=== PATIENT | male | born 1950 | race Caucasian/White ===

== ENCOUNTER 2019-11-28 14:33 | Outpatient (CLI) | payer MEDICARE, SELFPAY ==
--- NOTE | 2019-11-28 14:37 | ECG_ITS ---
Measurements Intervals [place] Rate: 65 P: 53 CT: 236 QRS: 4 QRSD: 103 T: 28 QT: 380 QTc: 396 Interpretive Statements SINUS RHYTHM WITH FIRST DEGREE AV BLOCK DELAYED PRECORDIAL R/S TRANSITION BASELINE ARTIFACT- I, III, AVR, AVL ABNORMAL ECG Electronically Signed On 11-28-2019 14:49:30 CDT by Prateek Guthrie D.O.
== END 2019-11-28 14:34 | disposition home or self-care (01) ==
LOC: ANHSURGERY 14:37
PROVIDERS: PCP Internal Medicine; Visit Provider Orthopaedic Surgery
DX: I44.0 Atrioventricular block, first degree (principal); Z95.5 Presence of coronary angioplasty implant and graft
CPT/HCPCS: 93005

== ENCOUNTER 2019-12-03 00:12 | Outpatient (CLI) | payer MEDICARE, SELFPAY ==
[2019-12-03 17:33] LABS: SARS-CoV-2 RNA PCR Negative
== END 2019-12-03 00:13 | disposition home or self-care (01) ==
LOC: ANHCOVIDDT 00:13
PROVIDERS: Visit Provider Orthopaedic Surgery
DX: Z01.818 Encounter for other preprocedural examination (principal); Z11.59 Encounter for screening for other viral diseases
CPT/HCPCS: 87635; C9803; U0003

== ENCOUNTER 2019-12-05 01:08 | Day surgery (SDC) | payer MEDICARE, SELFPAY ==
[2019-11-27 13:08] VITALS: BMI 25.4
--- NOTE | 2019-12-04 12:14 | P.PNAN_ITS ---
Anes - Initial Pre Proc Eval Procedure: Operation Date: 12/05/19 08:00 Proposed Procedures p Right Knee Arthroscopic Partial Medial Meniscectomy - Jose Alejandro Felipe MD Date/Time: 12/04/19 12:14 Surgeon: Jose Alejandro Felipe MD Pre Op Diagnosis: Right Knee Medial Meniscus Tear Patient Data Age: 69 Gender: M Height: 6 ft Weight: 85.3 kg Allergies Allergy/AdvReac Type Severity Reaction Status Date / Time diphenhydramine Allergy Unknown Seizure Verified 12/05/19 07:15 [From Benadryl] Home Medications Medication Instructions Recorded Confirmed Type aspirin 81 mg tablet,delayed 81 mg PO DAILY 11/24/19 12/05/19 History release atorvastatin 40 mg PO DAILY 11/27/19 12/05/19 History calcium carbonate [Tums] 200 mg PO HS 11/27/19 12/05/19 History lamotrigine 100 mg PO BID 11/27/19 12/05/19 History metoprolol succinate 50 mg PO DAILY 11/27/19 12/05/19 History Patient hx anesthesia problems: none Family hx anesthesia problems: none [facility] Social History Social History Smoking status: Never smoker Alcohol intake: current Anes - Eval Final PreProcedure Day of Procedure 12/04/19 12:14 Patient weight: normal Heart: regular rate and rhythm Lungs: clear to auscultation Airway: Mallampati scale class II Neurological: alert and oriented Last oral intake: >/= 8 hours ASA classification: III Emergent: no Anesthetic plan: proceed Anesthesia type and monitoring: general LMA and standard monitoring Informed Consent: The patient's anesthetic plan and its attendant risks and benefits were discussed with the patient/family/POA. Questions were solicited and answers provided to the satisfaction of the patient/family/POA.
[2019-12-05] VITALS (8 sets, daily range): BP systolic 97–142; BP diastolic 61–78; PULSE 52–75; RESP 10–16; TEMP 36.1; O2SAT 93–100
[2019-12-05] MEDS: LACTATED RINGERS 1,000 ML 30 ML IV CONT (06:28)
--- NOTE | 2019-12-05 07:25 | WPDHPUPDATE1 ---
History and Physical Update Update Date/Time: 12/05/19 07:25 History and Physical has been reviewed, including an updated exam of the patient. There are NO changes in the patient's condition. Risks, benefits, and alternatives have been discussed and questions answered. Patient agrees to proceed with procedure.
[2019-12-05] MEDS: ceFAZolin 2 GM/D5W 50 ML 2 GM/50 ML BAG IVPB (07:56)
[2019-12-05] MEDS: BUPIVACAINE/EPINEPHRINE 0.5% 10 ML VIAL 20 ML INFILTRATE (08:15)
[2019-12-05] MEDS: KETOROLAC 30 MG/ML VIAL (*BKC) IV PUSH (08:34)
--- NOTE | 2019-12-05 16:25 | PM.PROC ---
Procedure Note - Detailed Date of procedure: 12/05/19 Pre-op diagnosis: Right Knee Medial Meniscus Tear Post-op diagnosis: other ( Medial and lateral meniscus tears right knee.) Procedure performed: Arthroscopic partial Medial and lateral meniscectomy. Description of procedure: Extensive complex tearing in the posterior medial horn of the medial meniscus. 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 Softening of the lateral tibia. Slight posterior horn tearing of the lateral meniscus. Some degeneration on the superior surface. ACL intact. 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 Anesthesia: GETA Surgeon: Jose Alejandro Felipe MD Estimated blood loss (mL): 5 Complications: None Condition: stable Findings: Brief History: The patient complained of knee pain, swelling and mechanical symptoms despite conservative treatment. MRI confirmed the presence of a meniscus tear. Procedure Details: The patient was identified and the surgical site confirmed and signed in the preoperative holding area. Antibiotics were started per protocol. She was brought to the operative room and transferred to the OR table. A general anesthetic was administered. Supine position with the operative lower extremity position in the leg bejarano after placement of a well padded tourniquet. The leg support was lowered and the contralateral limb was supported with a soft bolster. The knee was prepped and draped in the usual sterile fashion. A time-out was performed. The portal sites were marked and infiltrated with 0.5% Marcaine 20 mL. The limb was exsanguinated and the tourniquet inflated to 300 mL Hg. Standard inferolateral and inferomedial portals were established. Inflow was obtained with the saline pump. The camera was introduced. Diagnostic inspection of the joint was accomplished. The medial meniscus was debrided with the arthroscopic shaver and punches until stable. T in she it has beenhe radiofrequency probe was also used to stabilize the remaining meniscal free edge. Good good portion of the meniscus remained. The posterior horn of the lateral meniscus was degenerative and tearing. A modest meniscectomy was performed there. The arthroscopic instruments were removed. The tourniquet released and wounds closed with subcutaneous 3-0 Monocryl absorbable suture. Steri strips and a sterile dressing were applied. A light elastic wrap was placed. The patient was extubated and brought to the recovery room in stable condition.
== END 2019-12-05 11:00 | disposition home or self-care (01) ==
PROVIDERS: PCP Internal Medicine; Visit Provider Orthopaedic Surgery
PROC: (CPT 29870; principal; 2019-12-05 08:00)
DX: S83.231A Complex tear of medial meniscus, current injury, right knee, initial encounter (principal); S83.281A Other tear of lateral meniscus, current injury, right knee, initial encounter; X50.0XXA Overexertion from strenuous movement or load, initial encounter; M94.261 Chondromalacia, right knee; I25.10 Atherosclerotic heart disease of native coronary artery without angina pectoris; I10 Essential (primary) hypertension; G40.909 Epilepsy, unspecified, not intractable, without status epilepticus; E78.5 Hyperlipidemia, unspecified; M81.0 Age-related osteoporosis without current pathological fracture; G47.30 Sleep apnea, unspecified; Z79.82 Long term (current) use of aspirin
CPT/HCPCS: 29880; J0690; J1100; J1885; J2250; J2405; J2704; J3010; J7120